=== PATIENT | male | born 1980 | race Caucasian/White ===

== ENCOUNTER 2019-04-14 09:49 | Emergency (ER) | payer BC ==
[2019-04-14] MEDS ORDERED: DIAZEPAM 5 MG TABLET ONE (09:59)
[2019-04-14] MEDS ORDERED: ONDANSETRON 4 MG (ODT) TAB ONE (09:59)
[2019-04-14] MEDS ORDERED: KETOROLAC 30 MG/ML INJ ONE (09:59)
--- NOTE | 2019-04-14 10:50 | ER ---
Nurse's Notes [facility] Name: Laurence Ortiz Age: 39 yrs Sex: Male : 1980 Arrival Date: 04/14/2019 Time: 09:53 Bed 6 Private MD: Diagnosis: Muscle spasm of back Presentation: 04/14 10:09 Presenting complaint: Patient states: Lifting up a gas can, felt pinch in mid back and jl7 pain through whole back, reports difficulty inhaling. Transition of care: patient was not received from another setting of care. Onset of symptoms was April 14, 2019. Risk Assessment: Do you want to hurt yourself or someone else? Patient reports no desire to harm self or others. Initial Sepsis Screen: Does the patient meet any 2 criteria? No. Patient's initial sepsis screen is negative. Does the patient have a suspected source of infection? No. Patient's initial sepsis screen is negative. Care prior to arrival: None. 10:09 Method Of Arrival: Wheelchair jl7 10:09 Acuity: ROWENA 4 jl7 Triage Assessment: 10:10 General: Appears in no apparent distress. uncomfortable, Behavior is calm, cooperative, jl7 appropriate for age. Pain: Complains of pain in back Pain currently is 10 out of 10 on a pain scale. Pain began 1 hour ago. Is continuous. EENT: No signs and/or symptoms were reported regarding the EENT system. Neuro: Level of Consciousness is awake, alert, obeys commands, Oriented to person, place, time, situation. Cardiovascular: Patient's skin is warm and dry. Respiratory: Airway is patent Respiratory effort is even, unlabored, shallow, Respiratory pattern is regular, symmetrical. Derm: Skin is pink, warm \T\ dry. Musculoskeletal: Swelling absent denies tenderness on palpation down spine Reports pain in back. Historical: - Allergies: 10:10 No Known Allergies; jl7 - Home Meds: 10:10 None [Active]; jl7 - PMHx: 10:10 None; jl7 - PSHx: 10:10 None; jl7 - Immunization history:: Adult Immunizations unknown. - Social history:: Smoking status: Patient/guardian denies using tobacco. - Ebola Screening: : No symptoms or risks identified at this time. Screenin:55 Abuse screen: Denies threats or abuse. Denies injuries from another. Nutritional jl7 screening: No deficits noted. Tuberculosis screening: No symptoms or risk factors identified. Fall Risk None identified. Assessment: 09:55 General: See triage assessment. jl7 10:30 Reassessment: Pt reports able o breath easier, still painful but better, rated 5/10, jl7 ERP notified, see [facility] for orders. Vital Signs: 09:53 Pulse 98; Temp 98.4(O); Pulse Ox 99% on R/A; aa5 10:38 BP 120 / 94; Pulse 89; Resp 18 S; Pulse Ox 100% on R/A; jl7 ED Course: 09:50 Mariella Franco FNP-C is PHCP. kb 09:50 Rehan Dela Cruz MD is Attending Physician. kb 09:53 Patient arrived in ED. as 09:55 Patient has correct armband on for positive identification. Bed in low position. Call jl7 light in reach. Side rails up X 1. 10:08 Mumtaz Avila, RN is Primary Nurse. jl7 10:10 Triage completed. jl7 10:10 Arm band placed on right wrist. jl7 10:24 Chest Pa And Lat (2 Views) XRAY In Process Unspecified. EDMS 11:00 No provider procedures requiring assistance completed. Patient did not have IV access jl7 during this emergency room visit. Administered Medications: 10:13 Drug: Zofran 4 mg Route: PO; jl7 11:00 Follow up: Response: No adverse reaction; Nausea is decreased jl7 10:14 Drug: Valium 5 mg Route: PO; jl7 10:15 Follow up: Response: No adverse reaction; Marked relief of symptoms jl7 10:15 Drug: TORadol 30 mg Route: IM; Site: right deltoid; jl7 10:30 Follow up: Response: No adverse reaction; Pain is decreased jl7 10:50 Drug: [place] 5 mg-325 mg 1 tabs Route: PO; jl7 11:00 Follow up: Response: Medication administered at discharge. jl7 Outcome: 10:49 Discharge ordered by . kb 11:00 Discharged to home ambulatory, with family. jl7 11:00 Condition: stable 11:00 Discharge instructions given to patient, family, Instructed on discharge instructions, follow up and referral plans. medication usage, Demonstrated understanding of instructions, follow-up care, medications, Prescriptions given X 2. 11:06 Patient left the ED. jl7 Signatures: Dispatcher [employer] Mariella Unger, Ramila Del Castillo Audri, RN RN aa5 Mumtaz Avila RN RN jl7
--- NOTE | 2019-04-14 10:50 | EDPHYS ---
Physician Documentation [facility] Name: Laurence Ortiz Age: 39 yrs Sex: Male : 1980 Arrival Date: 04/14/2019 Time: 09:53 Bed 6 Private MD: TOM Physician Rehan Dela Cruz HPI: 04/14 10:20 This 39 yrs old Male presents to ER via Wheelchair with complaints of Back kb Pain. 10:20 The patient presents with pain that is acute, with no known mechanism of injury. The kb symptoms are located in the right subscapular area. Onset: The symptoms/episode began/occurred just prior to arrival. The pain does not radiate. Associated signs and symptoms: The patient has no apparent associated signs or symptoms. The problem was sustained reaching over the truck bed. Modifying factors: The patient symptoms are alleviated by nothing, the patient symptoms are aggravated by any movement. Severity of symptoms: At their worst the symptoms were moderate, in the emergency department the symptoms are unchanged. The patient has not experienced similar symptoms in the past. The patient has not recently seen a physician. Pt reports he was lifting a gas can over truck gate to put it in the bed of the truck and felt a pinch in his back. Has had pain since then. Historical: - Allergies: 10:10 No Known Allergies; jl7 - Home Meds: 10:10 None [Active]; jl7 - PMHx: 10:10 None; jl7 - PSHx: 10:10 None; jl7 - Immunization history:: Adult Immunizations unknown. - Social history:: Smoking status: Patient/guardian denies using tobacco. - Ebola Screening: : No symptoms or risks identified at this time. ROS: 10:19 Constitutional: Negative for fever, chills, and weight loss, ENT: Negative for injury, kb pain, and discharge, Neck: Negative for injury, pain, and swelling, Cardiovascular: Negative for chest pain, palpitations, and edema, Respiratory: Negative for shortness of breath, cough, wheezing, and pleuritic chest pain, Abdomen/GI: Negative for abdominal pain, nausea, vomiting, diarrhea, and constipation, : Negative for injury, bleeding, discharge, and swelling, MS/Extremity: Negative for injury and deformity, Skin: Negative for injury, rash, and discoloration, Neuro: Negative for headache, weakness, numbness, tingling, and seizure. 10:19 Back: Positive for pain at rest, pain with movement, of the right subscapular area. Exam: 10:19 Head/Face: Normocephalic, atraumatic. ENT: Nares patent. No nasal discharge, no kb septal abnormalities noted. Tympanic membranes are normal and external auditory canals are clear. Oropharynx with no redness, swelling, or masses, exudates, or evidence of obstruction, uvula midline. Mucous membranes moist. Neck: Trachea midline, no thyromegaly or masses palpated, and no cervical lymphadenopathy. Supple, full range of motion without nuchal rigidity, or vertebral point tenderness. No Meningismus. Chest/axilla: Normal chest wall appearance and motion. Nontender with no deformity. No lesions are appreciated. Cardiovascular: Regular rate and rhythm with a normal S1 and S2. No gallops, murmurs, or rubs. Normal PMI, no JVD. No pulse deficits. Respiratory: Lungs have equal breath sounds bilaterally, clear to auscultation and percussion. No rales, rhonchi or wheezes noted. No increased work of breathing, no retractions or nasal flaring. Abdomen/GI: Soft, non-tender, with normal bowel sounds. No distension or tympany. No guarding or rebound. No evidence of tenderness throughout. Back: No spinal tenderness. No costovertebral tenderness. Full range of motion. Skin: Warm, dry with normal turgor. Normal color with no rashes, no lesions, and no evidence of cellulitis. MS/ Extremity: Pulses equal, no cyanosis. Neurovascular intact. Full, normal range of motion. Neuro: Awake and alert, GCS 15, oriented to person, place, time, and situation. Cranial nerves II-XII grossly intact. Motor strength 5/5 in all extremities. Sensory grossly intact. Cerebellar exam normal. Normal gait. 10:19 Constitutional: The patient appears alert, awake, in obvious pain, uncomfortable. Vital Signs: 09:53 Pulse 98; Temp 98.4(O); Pulse Ox 99% on R/A; aa5 10:38 BP 120 / 94; Pulse 89; Resp 18 S; Pulse Ox 100% on R/A; jl7 MDM: 09:50 Patient medically screened. kb 10:19 Data reviewed: vital signs, nurses notes. Data interpreted: Pulse oximetry: on room air kb is 99 %. Interpretation: normal. Counseling: I had a detailed discussion with the patient and/or guardian regarding: the historical points, exam findings, and any diagnostic results supporting the discharge/admit diagnosis, radiology results, the need for outpatient follow up, a family practitioner, to return to the emergency department if symptoms worsen or persist or if there are any questions or concerns that arise at home. 04/14 09:55 Order name: Chest Pa And Lat (2 Views) XRAY; Complete Time: 10:54 kb Administered Medications: 10:13 Drug: Zofran 4 mg Route: PO; jl7 11:00 Follow up: Response: No adverse reaction; Nausea is decreased jl7 10:14 Drug: Valium 5 mg Route: PO; jl7 10:15 Follow up: Response: No adverse reaction; Marked relief of symptoms jl7 10:15 Drug: TORadol 30 mg Route: IM; Site: right deltoid; jl7 10:30 Follow up: Response: No adverse reaction; Pain is decreased jl7 10:50 Drug: [place] 5 mg-325 mg 1 tabs Route: PO; jl7 11:00 Follow up: Response: Medication administered at discharge. jl7 Disposition: 04/15 10:03 Co-signature as Attending Physician, Rehan Dela Cruz MD I agree with the assessment and kirby plan of care. Disposition: 04/14/19 10:49 Discharged to Home. Impression: Muscle spasm of back. - Condition is Stable. - Discharge Instructions: Back Pain, Adult, [id number], Muscle Cramps and Spasms, Yufz-[id number], Muscle Strain, [id number]-li-Hyeh, Back Exercises, Slil-[id number]. - Prescriptions for Cyclobenzaprine 10 mg Oral Tablet - take 1 tablet by ORAL route every 8 hours As needed; 21 tablet. Diclofenac Sodium 75 mg Oral Tablet, Delayed Release (E.C.) - take 1 tablet by ORAL route 2 times per day As needed; 30 tablet. - Medication Reconciliation Form, Thank You Letter, Antibiotic Education, Prescription Opioid Use, Work release form form. - Follow up: Emergency Department; When: As needed; Reason: Worsening of condition. Follow up: Private Physician; When: 2 - 3 days; Reason: Recheck today's complaints, Continuance of care, Re-evaluation by your physician. Signatures: Dispatcher [employer] JOCELIN Franco Mariella, LONE LEAD LINEMAN-C LONE LEAD LINEMAN-Ckb Rehan Dela Cruz MD MD cha Leal, Jahala, RN RN jl7 Corrections: (The following items were deleted from the chart) 04/14 11:06 10:49 04/14/2019 10:49 Discharged to Home. Impression: Muscle spasm of back. Condition jl7 is Stable. Forms are Medication Reconciliation Form, Thank You Letter, Antibiotic Education, Prescription Opioid Use. Follow up: Emergency Department; When: As needed; Reason: Worsening of condition. Follow up: Private Physician; When: 2 - 3 days; Reason: Recheck today's complaints, Continuance of care, Re-evaluation by your physician. kb
[2019-04-14] MEDS ORDERED: HYDROCODONE/APAP 5/325 MG TAB ONE (10:51)
--- NOTE | 2019-04-14 10:53 | RAD REPORT ---
EXAM DESCRIPTION: RAD - Chest Pa And Lat (2 Views) - 04/14/2019 10:25 am CLINICAL HISTORY: Chest pain, back pain COMPARISON: None. TECHNIQUE: PA and lateral views of the chest were obtained. FINDINGS: The lungs are underinflated. Lung base atelectasis is present. Heart size is normal and central vasculature is within normal limits. No pleural effusion or pneumothorax seen. No compressi on fractures seen in the thoracic spine. No acute bone abnormality evident. No aortic abnormality. IMPRESSION: No acute cardiopulmonary process.
== END 2019-04-14 11:06 | disposition home or self-care (01) ==
LOC: ER 09:49
DX: M62.830 Muscle spasm of back (principal)
CPT/HCPCS: 71046; 96372; 99283